=== PATIENT | female | born 1990 | race African-American/Black ===

== ENCOUNTER 2021-06-10 17:37 | Outpatient (CLI) | payer OTHER ==
--- NOTE | 2021-06-11 16:09 | XRAY Report ---
PROCEDURE: Lumbar Spine 2 View INDICATIONS: R FLANK PX TECHNIQUE: 3 views of the lumbar spine were acquired. COMPARISON: None. FINDINGS: Bones: 5 rzk-whv-vridiab vertebrae are present. There is normal bony alignment. No vertebral body compression fractures. No suspicious bony lesions. Soft tissues: Overlying bowel gas pattern is normal. No suspicious soft tissue calcifications. Pro minent colonic stool is present. Calcifications are noted pelvis likely phleboliths. IMPRESSION: Moderate colonic stool without obstruction. No visualized renal calcifications. Reviewed by: Erika Norwood MD on 06/11/2021 4:08 PM PST Approved by: Erika Norwood MD on 06/11/2021 4:08 PM PST Station ID: [id number]
== END 2021-06-10 23:59 | disposition home or self-care (01) ==
LOC: DI.N 17:37
PROVIDERS: ATTEND Nurse Practitioner
DX: R10.9 Unspecified abdominal pain (principal)

== ENCOUNTER 2021-08-31 18:09 | Emergency (ER) | payer OTHER ==
--- NOTE | 2021-08-31 18:50 | ED Physician Documentation ---
History of Present Illness - Stated complaint Stated Complaint: FEVER,CHILLS,BODYACHE - Chief complaint Chief Complaint: Fever - History obtained from History obtained from: Patient - History of Present Illness Timing: Today Pain level max: 0 Pain level now: 0 - Additonal information Additional information: Patient is a 30-year-old female who presents to the emergency department with body aches and fever today. Denies any other symptoms. No cough. No congestion. No diarrhea or constipation. No urinary symptoms. No abdominal pain. No chest pain. No sore throat. No rhinorrhea. No rash. Review of Systems Constitutional: reports: Fever Nose: denies: Rhinorrhea / runny nose, Congestion GI: denies: Abdominal Pain, Vomiting, Diarrhea : denies: Dysuria, Frequency, Hesitancy, Incontinent, Hematuria, Discharge, Vaginal bleeding Skin: denies: Rash Musculoskeletal: denies: Neck pain, Back pain PD PAST MEDICAL HISTORY - Past Medical History Past Medical History: No GI: Other Other Past Medical History: Gall stones, per patient - Past Surgical History Past Surgical History: No - Present Medications Home Medications: Ambulatory Orders Medication Instructions Recorded Confirmed Cefdinir 300 mg PO BID #20 cap 08/31/21 norethindrone-e.estradioL-iron 1 tab PO DAILY 08/31/21 08/31/21 [Microgestin 24 Fe 1 mg-20 Mcg] - Allergies Allergies/Adverse Reactions: Allergies Allergy/AdvReac Type Severity Reaction Status Date / Time No Known Drug Allergies Allergy Verified 08/31/21 18:19 - Social History Does the pt smoke?: No Smoking Status: Never smoker PD ED PE NORMAL - Vitals Vital signs reviewed: Yes - General General: Alert and oriented X 3, No acute distress - HEENT HEENT: PERRL, Ears normal, Moist mucous membranes, Pharynx benign - Neck Neck: Supple, no meningeal sign, No adenopathy - Cardiac Cardiac: RRR - Respiratory Respiratory: No respiratory distress, Clear bilaterally - Abdomen Abdomen: Normal bowel sounds, Soft, Non tender, Non distended - Back Back: Other (mild L cvat) - Derm Derm: Warm and dry, No rash - Extremities Extremities: No edema, No calf tenderness / cord - Neuro Neuro: Alert and oriented X 3 - Psych Psych: Normal mood, Normal affect Results - Vitals Vitals: Vital Signs - 24 hr 08/31/21 08/31/21 08/31/21 18:15 19:10 19:55 Temperature 38.0 C H 36.8 C Heart Rate 98 81 Respiratory 19 14 15 Rate Blood Pressure 138/87 H 158/100 H 146/87 H O2 Saturation 99 100 98 Oxygen O2 Source Room air - Labs Labs: Laboratory Tests 08/31/21 18:55 Urine Color YELLOW Urine Clarity HAZY Urine pH 6.0 Ur Specific [place] 1.025 Urine Protein NEGATIVE Urine Glucose (UA) NEGATIVE Urine Ketones NEGATIVE Urine Occult Blood SMALL H Urine Nitrite NEGATIVE Urine Bilirubin NEGATIVE Urine Urobilinogen 1 (NORMAL) Ur Leukocyte Esterase NEGATIVE Urine RBC 6-10 H Urine WBC 4-5 Ur Squamous Epith Cells FEW Squamous Urine Bacteria Moderate H Ur Microscopic Review INDICATED Urine Culture Comments NOT INDICATED Urine HCG, Qual NEGATIVE PD MEDICAL DECISION MAKING - ED course Complexity details: reviewed results, re-evaluated patient, considered differential, d/w patient ED course: Patient is well-appearing, nontoxic. She is febrile, possible viral syndrome but does have moderate bacteria in her urine as well. Could potentially represent pyelonephritis. We will err on the side of caution and place her on antibiotics. Discussed risks and benefits of waiting for urine culture versus treating with antibiotics right away. Patient does understand that antibiotics do carry risks. Including C. difficile and other side effects. Patient is comfortable with this plan. We will have her follow-up with her doctor for further care. Patient counseled regarding signs and symptoms for which I believe and urgent re-evaluation would be necessary. Patient with good understanding of and agreement to plan and is comfortable going home at this time This document was made in part using voice recognition software. While efforts are made to proofread this document, sound alike and grammatical errors may occur. Departure - Departure Disposition: 01 Home, Self Care Clinical Impression: Pyelonephritis Fever Qualifiers: Fever type: unspecified Qualified Code(s): R50.9 - Fever, unspecified Condition: Good Instructions: ED Kidney Infec Female Follow-Up: CHAPINCITO FERNANDES MD [Primary Care Provider] - Within 1 week Prescriptions: Cefdinir 300 mg PO BID #20 cap Comments: Take all antibiotics until gone. Return if you worsen. Follow-up with your doctor for further care. [facility] [place] You also have a Covid test pending. You can check the results that the patient portal on the [employer] website. Forms: Activity restrictions Discharge Date/Time: 08/31/21 19:59
[2021-08-31 19:03] LABS: BILIRUBIN,URINE NEGATIVE (NEGATIVE); GLUCOSE, URINE (UA) NEGATIVE (NEGATIVE); KETONES,URINE (UA) NEGATIVE (NEGATIVE); LEUKOCYTE ESTERASE, URINE NEGATIVE (NEGATIVE); NITRITE,URINE NEGATIVE (NEGATIVE); OCCULT BLOOD,URINE SMALL (NEGATIVE); PROTEIN,URINE NEGATIVE (NEGATIVE); UROBILINOGEN,URINE 1 (NORMAL) E.U./dL (NORMAL)
[2021-08-31 19:05] LABS: CLARITY,URINE HAZY (CLEAR); HCG UR QUAL NEGATIVE
[2021-08-31 19:10] LABS: BACTERIA,URINE Moderate /HPF (None Seen); SQUAMOUS EPITHELIAL CELL,UR FEW Squamous (<= Few)
[2021-08-31] MEDS ORDERED: LIDOCAINE 1% 2 ML VIAL MC ONE (19:13)
[2021-08-31] MEDS ORDERED: cefTRIAXone 1 GM VIAL IM STA (19:13)
--- OUTSIDE RECORDS SUMMARY | 2021-08-31 19:23 | EXTERNAL MEDICAL SUMMARY RPT | Continuity of Care Document ---
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 Encounters No information. Medications date description facility 20210625 Spironolactone 25 MG Oral Tablet [facility] 20210613 Acetaminophen 325 MG / Hydrocodone Shaniqua rtrate 5 MG Oral [facility] Tablet 20210613 Acetaminophen 325 MG / Hydrocodone Shaniqua rtrate 5 MG [facility] Tablet 20210610 diclofenac sodium All Problems date description facility 20210725 Calculus of gallbladder without cholecy stitis without [facility] obstru 20210725 Calculus of gallbladder with acute chol ecystitis [facility] without obs 20210610 Unspecified abdominal pain All 20210610 Total score? All 20210610 Right flank pain All 20210610 LUMBAR SPINE 2 OR 3 VIEW All 20210610 Details of drug misuse behavior All 20210610 Current every day smoker All 20210610 Alcohol use All 20210610 Abdominal pain, other specified site; m ultiple sites All Procedures date description facility 20210625 [facility] 20210613 [facility] 20210613 [facility] Results test status date ordered by attending specimen vinnie e Urobilinogen_Presence_ unknown 20210610 unknown unknown unknown in_Urine_by_Test_strip Specific_gravity_of_Ur unknown 20210610 unknown unknown unknown ine_by_Test_strip pH_of_Urine_by_Test_st unknown 20210610 unknown unknown unknown rip Nitrite_Presence_in_Ur unknown 20210610 unknown unknown unknown ine_by_Test_strip Leukocyte_esterase_Pre unknown 20210610 unknown unknown unknown sence_in_Urine_by_Test_ strip Ketones_Mass_volume_in unknown 20210610 unknown unknown unknown _Urine_by_Test_strip Glucose_Mass_volume_in unknown 20210610 unknown unknown unknown _Urine_by_Test_strip Color_of_Urine unknown 20210610 unknown unknown unknown Bilirubin.total_Presen unknown 20210610 unknown unknown unknown ce_in_Urine_by_Test_str ip Appearance_of_Urine unknown 20210610 unknown unknown unk nown urinalysis_routine unknown 20210610 unknown unknown unkn own appearance_urine unknown 20210610 unknown unknown unknow n leukocyte_esterase_uri unknown 20210610 unknown unknown unknown ne_by_dipstick urobilinogen_urine_sem unknown 20210610 unknown unknown unknown iquantitative_dipstick_ specific_gravity_urine unknown 20210610 unknown unknown unknown pH_urine_semiquantitat unknown 20210610 unknown unknown unknown alice nitrite_urine_semiquan unknown 20210610 unknown unknown unknown titative ketones_urine_by_test_ unknown 20210610 unknown unknown unknown strip bilirubin_urine unknown 20210610 unknown unknown unknown urine_color unknown 20210610 unknown unknown unknown human_chorionic_gonado unknown 20210610 unknown unknown unknown tropin_urine_qualitativ e_urine_pregnancy_test_ Choriogonadotropin_pre unknown 20210610 unknown unknown unknown gnancy_test_Presence_in _Urine Albumin_Presence_in_Ur unknown 20210610 unknown unknown unknown ine RBC_urine_dipstick unknown 20210610 unknown unknown unkn own Erythrocytes_area_in_U unknown 20210610 unknown unknown unknown rine_sediment_by_Micros copy_high_power_field glucose_urine_semiquan unknown 20210610 unknown unknown unknown titative protein_urine_semiquan unknown 20210610 unknown unknown unknown titative_dipstick_ facility observation status value reference units lab abnor mal line range code notes All Urobilinogen unknown negative unknown _5818 unkno wn unknown _Presence_in_ -0 Urine_by_Test _strip All Specific_gra unknown 1.020 unknown _5811 unknown unknown vity_of_Urine -5 _by_Test_stri p All pH_of_Urine_ unknown 6.5 unknown _5803 unknown unknown by_Test_strip -2 All Nitrite_Pres unknown negative unknown _5802 unkno wn unknown ence_in_Urine -4 _by_Test_stri p All Leukocyte_es unknown trace unknown _5799 unknown unknown terase_Presen -2 ce_in_Urine_b y_Test_strip All Ketones_Mass unknown negative unknown _5797 unkno wn unknown _volume_in_Ur -6 ine_by_Test_s trip All Glucose_Mass unknown negative unknown _5792 unkno wn unknown _volume_in_Ur -7 ine_by_Test_s trip All Color_of_Uri unknown yellow unknown _5778 unknown unknown ne -6 All Bilirubin.to unknown negative unknown _5770 unkno wn unknown tal_Presence_ -3 in_Urine_by_T est_strip All Appearance_o unknown clear unknown _5767 unknown unknown f_Urine -9 All urinalysis_r unknown Clean unknown _47 unknown unknown outine Catch All appearance_u unknown clear unknown _328 unknown unknown rine All leukocyte_es unknown trace unknown _327 unknown unknown terase_urine_ by_dipstick All urobilinogen unknown negative unknown _326 unkno wn unknown _urine_semiqu antitative_di pstick_ All specific_gra unknown 1.020 unknown _325 unknown unknown vity_urine All pH_urine_sem unknown 6.5 unknown _324 unknown unknown iquantitative All nitrite_urin unknown negative unknown _323 unkno wn unknown e_semiquantit ative All ketones_urin unknown negative unknown _322 unkno wn unknown e_by_test_str ip All bilirubin_ur unknown negative unknown _319 unkno wn unknown ine All urine_color unknown yellow unknown _2751 unknown unknown All human_chorio unknown Negative unknown _2578 unkno wn unknown nic_gonadotro pin_urine_qua litative_urin e_pregnancy_t est_ All Choriogonado unknown Negative unknown _2106 unkno wn unknown tropin_pregna -3 ncy_test_Pres ence_in_Urine All Albumin_Pres unknown trace unknown _1753 unknown unknown ence_in_Urine -3 All RBC_urine_di unknown non-hemol unknown _1700 unkn own unknown pstick yzed trace 005 All Erythrocytes unknown non-hemol unknown _1394 unkn own unknown _area_in_Urin yzed trace 5-1 e_sediment_by _Microscopy_h igh_power_fie ld All glucose_urin unknown negative unknown _123 unkno wn unknown e_semiquantit ative All protein_urin unknown trace unknown _118 unknown unknown e_semiquantit ative_dipstic k_ Vital Signs date measurement value source 20210610 weight_standard 217.8 lb 20210610 weight_metric 98.79 kg 20210610 temperature_standard 96.7 F 20210610 temperature_metric 35.94 C 20210610 respiration_rate 14 /min 20210610 height_standard 67 in 20210610 height_metric 170.18 cm 20210610 heart_rate 83 /min 20210610 BP_systolic 124 mm[Hg] 20210610 BP_diastolic 79 mm[Hg] 20210610 BMI 34.24 kg/m2 20210613 respiration_rate 20 /min 20210613 weight_standard 212 lb 20210613 weight_metric 96.16 kg 20210613 temperature_standard 97.5 F 20210613 temperature_metric 36.39 C 20210613 respiration_rate 20 /min 20210613 height_standard 67 in 20210613 height_metric 170.18 cm 20210613 heart_rate 78 /min 20210613 BP_systolic 126 mm[Hg] 20210613 BP_diastolic 73 mm[Hg] 20210613 BMI 33.2 kg/m2 20210625 weight_standard 95.25 lb 20210625 weight_metric 43.21 kg 20210625 temperature_standard 97.2 F 20210625 temperature_metric 36.22 C 20210625 height_standard 67 in 20210625 height_metric 170.18 cm 20210625 heart_rate 60 /min 20210625 BP_systolic 120 mm[Hg] 20210625 BP_diastolic 80 mm[Hg] 20210625 BMI 32.8 kg/m2
[2021-08-31 19:59] VITALS: BP 146/87
== END 2021-08-31 19:59 | disposition home or self-care (01) ==
LOC: ED 18:09
DX: N12 Tubulo-interstitial nephritis, not specified as acute or chronic (principal); Z20.822 Contact with and (suspected) exposure to COVID-19
CPT/HCPCS: 81001; 81003; 81025; 87086; 99283

== ENCOUNTER 2022-09-16 07:48 | Outpatient (CLI) | payer OTHER ==
[2022-09-17 08:10] LABS: RPR Non Reactive (Non Reactive)
== END 2022-09-16 07:49 | disposition home or self-care (01) ==
LOC: LAB.N 07:48
PROVIDERS: ATTEND Physician Assistant
DX: R21 Rash and other nonspecific skin eruption (principal)
CPT/HCPCS: 86592; 86695; 86696